=== PATIENT | male | born 1965 | race Caucasian/White ===

== ENCOUNTER 2020-02-24 23:35 | Emergency (ER) | payer MEDICARE, OTHER ==
[~2020-02-24] VITALS: Ht 172.7 cm; Wt 62.5 kg
[2020-02-25 00:08] LABS: BASO # 0.1 x10^3/uL (0.0-0.2); BASO % 1 % (0-3); EOS # 0.7 x10^3/uL (0.0-0.7); EOS % 7 % (0-3); HEMATOCRIT 46.3 % (39.0-53.0); HEMOGLOBIN 15.5 g/dL (13.0-17.5); LYMPH # 2.5 x10^3/uL (1.0-4.8); LYMPH % 24 % (24-48); MEAN CORPUSCULAR HEMOGLOBIN 30 pg (25-35); MEAN CORPUSCULAR HGB CONC 33 g/dL (31-37); MEAN CORPUSCULAR VOLUME 91 fL (79-100); MONO % 10 % (0-9); NEUT # 6.3 x10^3uL (1.8-7.7); NEUT % 59 % (31-73); PLATELET COUNT 194 x10^3/uL (140-400); RED BLOOD COUNT 5.09 x10^6/uL (4.30-5.70); RED CELL DISTRIBUTION WIDTH 14.2 % (11.5-14.5); WHITE BLOOD COUNT 10.7 x10^3/uL (4.0-11.0)
[2020-02-25 00:27] LABS: CALCIUM 9.8 mg/dL (8.5-10.1); CREATININE 0.9 mg/dL (0.7-1.3); GFR 87.6
--- NOTE | 2020-02-25 00:28 | PHYS DOC ---
General Adult EDM: Chief Complaint: Palpitations HPI: HPI: 54-year-old male presents with palpitations. The patient has had intermittent palpitations for many years. Usually last a few minutes or up to 2 hours. He feels like he has been having nearly constant palpitations since yesterday. They make him mildly short of breath and fatigue. He does not take any medication for this specifically. He is on metoprolol. He also takes magnesium and potassium supplements as he was told that he was low on both of these previously and this could be causing his palpitations. He has been taking all of his medications and supplements. He denies fever chills. He has no other complaints of illness. He has a history of vascular surgery for peripheral vascular disease. Review of Systems: Review of Systems: Constitutional: Denies fever or chills Eyes: Denies change in visual acuity HENT: Denies nasal congestion or sore throat Respiratory: Denies cough or shortness of breath Cardiovascular: Palpitations. Denies chest pain or edema GI: Denies abdominal pain, nausea, vomiting, bloody stools or diarrhea : Denies dysuria Musculoskeletal: Denies back pain or joint pain Integument: Denies rash Neurologic: Denies headache, focal weakness or sensory changes Endocrine: Denies polyuria or polydipsia Lymphatic: Denies swollen glands Psychiatric: Denies depression or anxiety Heart Score: Risk Factors: Risk Factors: DM, Current or recent (<one month) smoker, HTN, HLP, family history of CAD, obesity. Risk Scores: Score 0 - 3: 2.5% MACE over next 6 weeks - Discharge Home Score 4 - 6: 20.3% MACE over next 6 weeks - Admit for Clinical Observation Score 7 - 10: 72.7% MACE over next 6 weeks - Early Invasive Strategies Allergies: Allergies: Allergies Coded Allergies Type Severity Reaction Last Updated Verified No Known Drug Allergies 02/25/20 No Physical Exam: PE: Constitutional: Well developed, well nourished, no acute distress, non-toxic appearance. [] HENT: Normocephalic, atraumatic, bilateral external ears normal, oropharynx moist, no oral exudates, nose normal. [] Eyes: PERRLA, EOMI, conjunctiva normal, no discharge. [] Neck: Normal range of motion, no tenderness, supple, no stridor. [] Cardiovascular: Heart rate 139, regular rhythm, no murmur [] Lungs & Thorax: Bilateral breath sounds clear to auscultation [] Abdomen: Bowel sounds normal, soft, no tenderness, no masses, no pulsatile masses. [] Skin: Warm, dry, no erythema, no rash. [] Back: No tenderness, no CVA tenderness. [] Extremities: No tenderness, no cyanosis, no clubbing, ROM intact, no edema. [] Neurologic: Alert and oriented X 3, normal motor function, normal sensory function, no focal deficits noted. [] Psychologic: Affect normal, judgement normal, mood normal. [] Current Patient Data: Labs: Laboratory Tests Test 02/24/20 23:50 White Blood Count 10.7 x10^3/uL (4.0-11.0) Red Blood Count 5.09 x10^6/uL (4.30-5.70) Hemoglobin 15.5 g/dL (13.0-17.5) Hematocrit 46.3 % (39.0-53.0) Mean Corpuscular Volume 91 fL (79-100) Mean Corpuscular Hemoglobin 30 pg (25-35) Mean Corpuscular Hemoglobin Concent 33 g/dL (31-37) Red Cell Distribution Width 14.2 % (11.5-14.5) Platelet Count 194 x10^3/uL (140-400) Neutrophils (%) (Auto) 59 % (31-73) Lymphocytes (%) (Auto) 24 % (24-48) Monocytes (%) (Auto) 10 % (0-9) H Eosinophils (%) (Auto) 7 % (0-3) H Basophils (%) (Auto) 1 % (0-3) Neutrophils # (Auto) 6.3 x10^3uL (1.8-7.7) Lymphocytes # (Auto) 2.5 x10^3/uL (1.0-4.8) Monocytes # (Auto) 1.0 x10^3/uL (0.0-1.1) Eosinophils # (Auto) 0.7 x10^3/uL (0.0-0.7) Basophils # (Auto) 0.1 x10^3/uL (0.0-0.2) EKG: EKG: Irregular rhythm, rate 139, normal axis, no ST elevations or depressions. [] Radiology/Procedures: Radiology/Procedures: [] Impressions: Chest AP only at 2329: Reason for examination: Palpitations. Comparison is made to previous study dated 06/16/2012. The heart size is normal. Mediastinum is unremarkable. Lung flores are clear. No acute bony abnormalities are seen. Impression: No acute cardiopulmonary disease. Electronically signed by: Georgiana Tabor MD (02/25/2020 12:29 AM) [facility] DICTATED AND SIGNED BY: GEORGIANA TABOR MD DATE: 02/25/2028 CC: MATT MONTES DO; DG THOMAS MD ~ Course & Med Decision Making: Course & Med Decision Making Pertinent Labs and Imaging studies reviewed. (See chart for details) The patient has never had his palpitations officially diagnosed. He has never been in the hospital or the emergency room to have these stopped. She did have surgery in the past and had palpitations after that but that is when they discovered he was low on potassium and magnesium. He has been on supplements ever since. His chest x-ray is unremarkable. I will try 20 mg of Cardizem. The patient has had no further palpitations or atrial fibrillation in the emergency room. He is stable for discharge at this time. He will follow-up with his primary care physician. [] Marcy Disclaimer: Marcy Disclaimer: This electronic medical record was generated, in whole or in part, using a voice recognition dictation system. Departure Departure: Impression: Primary Impression: Palpitations Additional Impression: Atrial fibrillation Qualified Codes: I48.0 - Paroxysmal atrial fibrillation Disposition: HOME/RESIDENCE PRIOR TO ADM Condition: STABLE Referrals: DG THOMAS MD (PCP) Patient Instructions: Palpitations, [place]ved Justification of Admission: Justification of Admission: Justification of Admission Dx: N/A MATT MONTES DO Feb 25, 2020 00:28
[2020-02-25 00:32] LABS: ALBUMIN 4.2 g/dL (3.4-5.0); ALBUMIN/GLOBULIN RATIO 1.2 (1.0-1.7); MAGNESIUM 1.5 mg/dL (1.8-2.4); TOTAL BILIRUBIN 0.4 mg/dL (0.2-1.0); TOTAL PROTEIN 7.7 g/dL (6.4-8.2)
--- NOTE | 2020-02-25 00:32 | RAD ---
Chest AP only at 2329: Reason for examination: Palpitations. Comparison is made to previous study dated 06/16/2012. The heart size is normal. Mediastinum is unremarkable. Lung flores are clear. No acute bony abnormalities are seen. Impression: No acute cardiopulmonary disease. Electronically signed by: Georgiana Mcdonald MD (02/25/2020 12:29 AM) [facility]
[2020-02-25] MEDS ORDERED: dilTIAZem 25 MG/5 ML VIAL IVP ONE (01:00)
[2020-02-25] MEDS ORDERED: MAGNESIUM OXIDE 400 MG TABLET PO ONE (01:00)
[2020-02-25 01:44] VITALS: BP 130/76
--- NOTE | 2020-02-25 01:47 | EKG ---
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
== END 2020-02-25 02:15 | disposition home or self-care (01) ==
LOC: ER 23:35
DX: I48.0 Paroxysmal atrial fibrillation (principal); R00.2 Palpitations
CPT/HCPCS: 36415; 71045; 80053; 83735; 84484; 85025; 93005; 96374; 99285; J3490

== ENCOUNTER → 2021-10-19 | Outpatient (CLI) | payer MEDICARE ==
[2021-10-19 10:13] LABS: BASO # 0.1 x10^3/uL (0.0-0.2); BASO % 1 % (0-3); EOS # 0.8 x10^3/uL (0.0-0.7); EOS % 7 % (0-3); HEMATOCRIT 25.6 % (39.0-53.0); HEMOGLOBIN 8.5 g/dL (13.0-17.5); LYMPH # 1.3 x10^3/uL (1.0-4.8); LYMPH % 10 % (24-48); MEAN CORPUSCULAR HEMOGLOBIN 31 pg (25-35); MEAN CORPUSCULAR HGB CONC 33 g/dL (31-37); MEAN CORPUSCULAR VOLUME 92 fL (79-100); MONO # 1.2 x10^3/uL (0.0-1.1); MONO % 10 % (0-9); NEUT # 8.9 x10^3uL (1.8-7.7); NEUT % 72 % (31-73); PLATELET COUNT 345 x10^3/uL (140-400); RED CELL DISTRIBUTION WIDTH 15.6 % (11.5-14.5); WHITE BLOOD COUNT 12.4 x10^3/uL (4.0-11.0)
[2021-10-19 10:18] LABS: C REACTIVE PROTEIN 34.4 mg/L (0-3.3); CREATININE 1.2 mg/dL (0.7-1.3); GFR 62.4
[2021-10-19 11:55] LABS: SEDIMENTATION RATE 63 (0-15)
== END ==
LOC: SPEC 09:58
PROVIDERS: ATTEND Internal Medicine Infectious Disease
DX: Z45.2 Encounter for adjustment and management of vascular access device (principal)
CPT/HCPCS: 36415; 82550; 82565; 84520; 85025; 85651; 86140

== ENCOUNTER → 2021-10-25 | Outpatient (CLI) | payer MEDICARE ==
[2021-10-25 14:34] LABS: BASO # 0.1 x10^3/uL (0.0-0.2); BASO % 1 % (0-3); EOS # 0.7 x10^3/uL (0.0-0.7); EOS % 7 % (0-3); HEMATOCRIT 28.6 % (39.0-53.0); HEMOGLOBIN 9.6 g/dL (13.0-17.5); LYMPH # 1.5 x10^3/uL (1.0-4.8); LYMPH % 15 % (24-48); MEAN CORPUSCULAR HEMOGLOBIN 31 pg (25-35); MEAN CORPUSCULAR HGB CONC 34 g/dL (31-37); MEAN CORPUSCULAR VOLUME 92 fL (79-100); MONO % 10 % (0-9); NEUT # 6.9 x10^3uL (1.8-7.7); NEUT % 67 % (31-73); PLATELET COUNT 281 x10^3/uL (140-400); RED BLOOD COUNT 3.12 x10^6/uL (4.30-5.70); RED CELL DISTRIBUTION WIDTH 15.6 % (11.5-14.5); WHITE BLOOD COUNT 10.3 x10^3/uL (4.0-11.0)
[2021-10-25 14:38] LABS: C REACTIVE PROTEIN 11.4 mg/L (0-3.3); CREATININE 1.2 mg/dL (0.7-1.3); GFR 62.4
[2021-10-25 15:40] LABS: SEDIMENTATION RATE 57 (0-15)
== END ==
LOC: SPEC 13:59
PROVIDERS: ATTEND Internal Medicine Infectious Disease
DX: E11.52 Type 2 diabetes mellitus with diabetic peripheral angiopathy with gangrene (principal); Z45.2 Encounter for adjustment and management of vascular access device
CPT/HCPCS: 36415; 82550; 82565; 84520; 85025; 85651; 86140